=== PATIENT | female | born 1990 | race Caucasian/White ===

== ENCOUNTER 2022-09-09 12:04 | Emergency (ER) | payer OTHER ==
[2022-09-09 12:20] LABS: Bacteria FEW /HPF (NEGATIVE); Epithelial Cells RARE /HPF (FEW); Mucus SLIGHT /HPF (NEGATIVE); RBC 0-2 /HPF (0-2); Sperm PRESENT /HPF (NEGATIVE); WBC 51-100 /HPF (0-5)
[2022-09-09 12:21] VITALS: O2SAT 100
[2022-09-09 12:25] LABS: Appearance CLEAR (CLEAR); Glucose NEGATIVE (NEGATIVE)
[2022-09-09 12:26] LABS: Bilirubin NEGATIVE (NEGATIVE); Dipstick done @ ? MAIN LAB; Ketones NEGATIVE (NEGATIVE); Nitrite NEGATIVE (NEGATIVE); Protein,Urine Dip NEGATIVE (Negative); RBC NEGATIVE Ery/ul (0-5); Specific Gravity 1.025 (1.005-1.025); Urobilinogen 0.2 mg/dL (0-1)
[2022-09-09 12:27] LABS: Urine Cultured Indicated? YES
--- NOTE | 2022-09-09 12:59 | ERPHSYRPT ---
- History of Present Illness Time Seen by Provider: 09/09/22 12:06 Source: patient Exam Limitations: no limitations Patient Subjective Stated Complaint: Pt reports "I think I have a UTI. I get them all of the time when I drink sugary drinks. I have had burning when urinati on, have to pee all of the time but then can't. This started two days ago." Triage Nursing Assessment: Patient ambulated to cot with steady upright gait. Alert and oriented x3. No apparent respiratory distress. Complaints of urinary frequency with hesitation and burning for two days. Has not taken any otc meds other than ibuprofen for discomfort. Physician History: 32 years old female with history of recurrent UTIs presented in the ER with increased urinary frequency, dysuria/burning and sense of incomplete voiding with some suprapubic discomfort. Denies any flank pain. No nausea vomiting, fever or chills reported. Does have history of hysterectomy Timing/Duration: day(s) (2), sudden Quality: burning, sharpness Onset Location: suprapubic, urethral Severity of Pain-Max: moderate Severity of Pain-Current: moderate Sexual intercourse history: non-contributory Modifying Factors: Worsens With: movement Associated Symptoms: dysuria, urinary frequency, No fever, No chills Allergies/Adverse Reactions: amoxicillin Allergy (Verified 09/09/22 12:10) Penicillins Allergy (Verified 09/09/22 12:10) Home Medications: Venlafaxine HCl [Effexor Xr] 75 mg PO BID 09/09/22 [History] Hx Tetanus, Diphtheria Vaccination/Date Given: No Hx Influenza Vaccination/Date Given: No Hx Pneumococcal Vaccination/Date Given: No Travel Risk - International Travel Have you traveled outside of the country in past 3 weeks: No - Coronavirus Screening Are you exhibiting any of the following symptoms?: No Close contact with a COVID-19 positive Pt in past 14-21 Days: No - Vaccine Status Have you recieved a Covid-19 vaccination: No - Review of Systems Constitutional: No Symptoms Eyes: No Symptoms Respiratory: No Symptoms Cardiac: No Symptoms Abdominal/Gastrointestinal: No Symptoms Genitourinary Symptoms: Dysuria, Frequency Musculoskeletal: No Symptoms Skin: No Symptoms Neurological: No Symptoms Endocrine: No Symptoms Hematologic/Lymphatic: No Symptoms Immunological/Allergic: No Symptoms - Past Medical History Neurological History: No Pertinent History Cardiac History: No Pertinent History Respiratory History: No Pertinent History Endocrine Medical History: No Pertinent History Musculoskeletal History: Fractures GI Medical History: GERD Psycho-Social History: Anxiety, Depression - Past Surgical History Past Surgical History: Yes Cardiac: No Pertinent History Gastrointestinal: No Pertinent History Genitourinary: No Pertinent History Musculoskeletal: Orthopedic Surgery Female Surgical History: Other Other Surgical History: partial hysterectomy, right knee meniscus and ACL repair - Social History Smoking Status: Current every day smoker How long have you smoked: 13 Exposure to second hand smoke: Yes Drug Use: none Patient Lives Alone: No - Female History Hx Now: No - Nursing Vital Signs Nursing Vital Signs: Initial Vital Signs Temperature 97.6 F 09/09/22 12:11 Pulse Rate 76 09/09/22 12:11 Respiratory Rate 15 09/09/22 12:11 Blood Pressure 119/73 09/09/22 12:11 O2 Sat by Pulse Oximetry 100 09/09/22 12:11 Pain Scale Pain Intensity 2 - Physical Exam General Appearance: no apparent distress Eye Exam: PERRL/EOMI Ears, Nose, Throat Exam: normal ENT inspection Neck Exam: normal inspection, full range of motion Respiratory Exam: normal breath sounds, lungs clear Cardiovascular Exam: regular rate/rhythm, normal heart sounds Gastrointestinal/Abdomen Exam: soft, normal bowel sounds, No tenderness Back Exam: normal inspection, normal range of motion Extremity Exam: normal inspection Neurologic Exam: alert, oriented x 3, cooperative Skin Exam: normal color SpO2 Interpretation: normal SpO2: 100 O2 Delivery: Room Air Ordered Tests: Active Orders 24 hr Category Date Time Status CULTURE,URINE Stat Lab 09/09/22 12:10 Received UA W/RFX CULTURE Stat Lab 09/09/22 12:10 Completed Lab/Rad Data: Laboratory Results 09/09/22 Range/Units 12:10 Urinalys Dipstick Clnc MAIN LAB Urine Color YELLOW (YELLOW) Urine Appearance CLEAR (CLEAR) Urine pH 7.0 (5-6) Ur Specific [place] 1.025 (1.005-1.025) POC Urine Protein Conf NEGATIVE (Negative) Urine Ketones NEGATIVE (NEGATIVE) Urine Nitrite NEGATIVE (NEGATIVE) Urine Bilirubin NEGATIVE (NEGATIVE) Urine Urobilinogen 0.2 (0-1) mg/dL Urine Leukocytes TRACE A (NEGATIVE) Urine WBC (Auto) 51-100 A (0-5) /HPF Urine RBC (Auto) 0-2 (0-2) /HPF U Epithel Cells (Auto) RARE (FEW) /HPF Urine Bacteria (Auto) FEW A (NEGATIVE) /HPF Urine RBC NEGATIVE (0-5) Jamari/ul Urine Mucus (Auto) SLIGHT A (NEGATIVE) /HPF Urine Sperm (Auto) PRESENT A (NEGATIVE) /HPF Ur Culture Indicated? YES Urine Glucose NEGATIVE (NEGATIVE) mg/dL - Progress Progress: re-examined Air Movement: good Progress Note: 09/09/22 13:04 has UTI , started on keflex, outpatient follow up Blood Culture(s) Obtained: No Antibiotics given: Yes Counseled pt/family regarding: lab results, diagnosis, need for follow-up - Departure Departure Disposition: Home Clinical Impression: Acute UTI Condition: Stable Critical Care Time: No Referrals: CRISTAL RAMIREZ MD [ACTIVE STAFF] - Follow Up with PCP/3 days Instructions: Urinary Tract Infection, Adult (DC) Additional Instructions: Tylenol/ibuprofen as needed. Follow-up with primary care for reevaluation. Return to ER for worsening symptoms of UTI or if having flank pain, intractable nausea vomiting/fever chills etc. Prescriptions: Cephalexin Mh 500 mg [Keflex 500 mg] 500 mg PO TID #21 cap
[2022-09-09 13:19] VITALS: BP 109/80; PULSE 73
== END 2022-09-09 13:17 | disposition home or self-care (01) ==
LOC: ED 12:04
DX: N39.0 Urinary tract infection, site not specified (principal); R30.0 Dysuria; R35.0 Frequency of micturition; R10.2 Pelvic and perineal pain; Z79.899 Other long term (current) drug therapy; Z28.310 Unvaccinated for COVID-19; Z72.0 Tobacco use
CPT/HCPCS: 81015; 87086; 99282

== ENCOUNTER 2022-09-30 17:37 | Emergency (ER) | payer SELFPAY ==
[2022-09-30] MEDS ORDERED: TORAdol 30 mg Injection IM ONE (18:57)
[2022-09-30] MEDS ORDERED: TORAdol 30 mg Injection ONE (19:03)
[2022-09-30 19:29] VITALS: BP 110/77; PULSE 69; O2SAT 99
[2022-09-30] MEDS ORDERED: Tylenol #3 Tablet PO ONE ×2 (19:37)
--- NOTE | 2022-09-30 19:37 | ERPHSYRPT ---
- History of Present Illness Time Seen by Provider: 09/30/22 18:28 Source: patient Exam Limitations: no limitations Patient Subjective Stated Complaint: C/O left ankle pain/injury. Patient states she was walking down her steps around 12noon today and her ankle bent sideways and she heard a pop. States she tried to "walk it off" and thinks she made it worse. Triage Nursing Assessment: Patient brought back to the ED in a w/c. SHe is alert and oriented. No SOB. Left outer ankle is swollen, no bruising at this time. Pedal pulse present. Patient c/o tenderness to touch in calf, ankle, and top of foot. Physician History: 32 years old female tripped on her doorsteps, bent her left ankle prior to arrival with moderate to severe sharp pain with movements, weightbearing. No injury anywhere else. Method of Injury: twisted Occurred: just prior to arrival Quality: sharpness Severity of Pain-Max: severe Severity of Pain-Current: severe Lower Extremities Pain: ankle: left Modifying Factors: Improves With: immobilization. Worsens With: movement Associated Symptoms: unable to bear weight Allergies/Adverse Reactions: amoxicillin Allergy (Verified 09/30/22 18:27) Penicillins Allergy (Verified 09/30/22 18:27) Home Medications: Venlafaxine HCl [Effexor Xr] 75 mg PO BID 09/09/22 [History] Hx Tetanus, Diphtheria Vaccination/Date Given: Yes Hx Influenza Vaccination/Date Given: No Hx Pneumococcal Vaccination/Date Given: No Immunizations Up to Date: Yes Travel Risk - International Travel Have you traveled outside of the country in past 3 weeks: No - Coronavirus Screening Are you exhibiting any of the following symptoms?: No Close contact with a COVID-19 positive Pt in past 14-21 Days: No - Vaccine Status Have you recieved a Covid-19 vaccination: No - Review of Systems Constitutional: No Symptoms Ears, Nose, & Throat: No Symptoms Respiratory: No Symptoms Cardiac: No Symptoms Abdominal/Gastrointestinal: No Symptoms Genitourinary Symptoms: No Symptoms Musculoskeletal: Fall, Injury, Joint Pain, Joint Swelling Skin: No Symptoms Neurological: No Symptoms Psychological: No Symptoms Endocrine: No Symptoms - Past Medical History Pertinent Past Medical History: Yes Neurological History: No Pertinent History Cardiac History: No Pertinent History Respiratory History: No Pertinent History Endocrine Medical History: No Pertinent History Musculoskeletal History: Fractures GI Medical History: GERD Psycho-Social History: Anxiety, Depression - Past Surgical History Past Surgical History: Yes Cardiac: No Pertinent History Gastrointestinal: No Pertinent History Genitourinary: No Pertinent History Musculoskeletal: Orthopedic Surgery Female Surgical History: Other Other Surgical History: partial hysterectomy, right knee meniscus and ACL repair - Social History Smoking Status: Current every day smoker How long have you smoked: 13 Exposure to second hand smoke: Yes Drug Use: none Patient Lives Alone: No - Female History Hx Now: No (Half hysterectomy) - Nursing Vital Signs Nursing Vital Signs: Initial Vital Signs Temperature 98.6 F 09/30/22 18:28 Pulse Rate 65 09/30/22 18:28 Respiratory Rate 18 09/30/22 18:28 Blood Pressure 117/73 09/30/22 18:28 O2 Sat by Pulse Oximetry 98 09/30/22 18:28 Pain Scale Pain Intensity 8 - Physical Exam General Appearance: no apparent distress, alert Eyes, Ears, Nose, Throat Exam: normal ENT inspection Neck Exam: normal inspection, supple, full range of motion Cardiovascular/Respiratory Exam: normal breath sounds, regular rate/rhythm Back Exam: normal range of motion Ankle Exam: right ankle: non-tender, normal inspection, normal range of motion, no evidence of injury, left ankle: bone tenderness (Lateral malleolus), limited range of motion, pain, soft tissue tenderness, swelling (Lateral medial) Foot Exam: bilateral foot: non-tender, normal inspection, normal range of motion Neuro/Tendon Exam: normal sensation, normal motor functions Mental Status Exam: alert, oriented x 3, cooperative Skin Exam: normal color SpO2 Interpretation: normal SpO2: 99 O2 Delivery: Room Air Procedures - Splinting Location of Splint: Left, Ankle Type of Splint: Velcro Splint Ordered Tests: Active Orders 24 hr Category Date Time Status ANKLE (3 VIEWS) Stat Exams 09/30/22 18:36 Taken Medication Summary Discontinued Medications Generic Name Dose Route Start Last Admin Trade Name Freq PRN Reason Stop Dose Admin Ketorolac Tromethamine 30 mg 09/30/22 18:57 09/30/22 19:05 Ketorolac Tromethamine 30 Mg/Ml Inj IM 09/30/22 18:58 30 mg STAT ONE Administration Ketorolac Tromethamine Confirm 09/30/22 19:03 Ketorolac Tromethamine 30 Mg/Ml Inj Administered 09/30/22 19:04 Dose 30 mg .ROUTE .STK-MED ONE - Progress Progress: improved, pain not gone completely, re-examined Progress Note: 09/30/22 19:35 32 years old is evaluated for left ankle pain and swelling after she tripped on her door stabs and bent her ankle. Moderate to severe pain making difficult ambulation. No injury anywhere else. Tenderness on lateral malleolus. No tenderness at base of fifth metatarsal. Given Toradol for symptomatic relief. X-rays reviewed by me negative for any acute fracture dislocation, official report is pending. Placed in Aircast, weightbearing as tolerated and NSAIDs for pain and outpatient podiatry follow-up. Counseled pt/family regarding: diagnosis, need for follow-up, rad results - Departure Departure Disposition: Home Clinical Impression: Ankle sprain Condition: Stable Critical Care Time: No Referrals: DOCTOR,NO FAMILY [Primary Care Provider] - Follow up/PCP as directed SASHA JOSE DPM [ACTIVE STAFF] - Follow up/PCP as directed (Tomorrow for reevaluation) Instructions: Ankle Sprain (DC) Additional Instructions: Take Tylenol/ibuprofen as needed. Keep it elevated. Weightbearing as tolerated. Follow-up with podiatry for reevaluation in the morning. Return to ER for any worsening. Prescriptions: Ibuprofen 600 mg PO Q6HPRN PRN 10 Days #20 tablet PRN Reason: Pain
[2022-09-30] MEDS ORDERED: Tylenol #3 Tablet ONE (19:42)
--- NOTE | 2022-10-01 08:40 | XRAY ---
Indication: Pain and swelling following injury. Comparison: None 3 view left ankle demonstrates anterolateral soft tissue swelling. No other bony, articular, or soft tissue abnormalities.
== END 2022-09-30 19:51 | disposition home or self-care (01) ==
LOC: ED 17:37
DX: S93.402A Sprain of unspecified ligament of left ankle, initial encounter (principal); X50.0XXA Overexertion from strenuous movement or load, initial encounter; Y93.01 Activity, walking, marching and hiking; Z79.899 Other long term (current) drug therapy; Z28.310 Unvaccinated for COVID-19; Z72.0 Tobacco use
CPT/HCPCS: 73610; 96372; 99283; J1885; A9270-GY